=== PATIENT | female | born 1985 | race Caucasian/White ===

== ENCOUNTER 2017-05-21 11:26 | Emergency (ER) | END 2017-05-21 17:41 | disposition home or self-care (01) ==

== ENCOUNTER 2017-06-28 12:28 | Emergency (ER) | END 2017-06-28 21:00 | disposition home or self-care (01) ==

== ENCOUNTER 2018-10-23 00:16 | Emergency (ER) | payer OTHER ==
[~2018-10-23] VITALS: Ht 147.3 cm; Wt 70.0 kg
[~2018-10-23 00:16] MED LIST: BACITUD TOP; HYDR-4011 PO; IBUP-1542 PO; LEVO50TA89; PREN1TAB49
[2018-10-23 00:17] VITALS: BP 128/74; PULSE 100; RESP 16; Ht 147.3 cm; Wt 70.0 kg
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
[2018-10-23] MEDS ORDERED: HYDROCODONE/APAP (5/325) TAB PO ONE (01:00)
[2018-10-23] MEDS ORDERED: CYCL10TA7 PO (02:35)
[2018-10-23] MEDS ORDERED: IBUP800T48 PO (02:35)
== END 2018-10-23 03:57 | disposition home or self-care (01) ==
LOC: FTE 00:16
DX: S06.0X0A Concussion without loss of consciousness, initial encounter (principal); S10.93XA Contusion of unspecified part of neck, initial encounter; S00.93XA Contusion of unspecified part of head, initial encounter; S60.221A Contusion of right hand, initial encounter; F17.210 Nicotine dependence, cigarettes, uncomplicated; Y00.XXXA Assault by blunt object, initial encounter
CPT/HCPCS: 70450; 72125; 73030; 73130; 81001; 81025; Z7502; Z7610